=== PATIENT | male | born 1945 | race Caucasian/White ===

== ENCOUNTER 2019-05-04 21:37 | Emergency (ER) | payer OTHER ==
[2019-05-04 22:42] LABS: ABS Eosinophils 0.1 10^3/ul (0-0.6); ABS Lymphocytes 0.6 10^3/ul (1.0-4.8); ABS Monocytes 0.3 10^3/ul (0-0.8); ABS Neutrophils 5.4 10^3/ul (1.5-7.7); Eosinophil % 1.4 %; Hematocrit 38 % (42-52); Hemoglobin 13.1 g/dL (14.0-18.0); Lymphocyte % 9.6 %; Mean Corpuscular HGB Conc 35 g/dL (31-36); Mean Corpuscular Hemoglobin 28 pg (27-31); Mean Corpuscular Volume 82 fL (80-94); Mean Platelet Volume 7.1 fL (7.4-10.4); Platelet Count 142 10^3/uL (150-450); Red Blood Count 4.62 10^6 /uL (4.18-5.48); Red Cell Distribution Width 15 % (10-15); White Blood Count 6.4 10^3/uL (3.5-10.8)
[2019-05-04] MEDS ORDERED: NS 0.9% 1000 ML** 1,000 ML IV ONE (22:50)
[2019-05-04] MEDS ORDERED: Morphine 4 MG/ML VIAL (1 ml) 4 MG/ML VIAL IV ONE (22:50)
[2019-05-04] MEDS ORDERED: Ketorolac INJ* 30 MG/ML 1 ML VIAL IV PUSH ONE (22:50)
[2019-05-04] MEDS ORDERED: Ondansetron INJ* 2 MG/ML VIAL IV ONE (22:50)
--- NOTE | 2019-05-04 22:58 | ED ---
Abdominal Pain/Male - HPI Summary HPI Summary: Patient is a 74 y/o M presenting to the ED for a chief complaint of right flank pain that began around 18:00 on 05/04/19. Patient states that that right flank pain radiates to the groin and is rated as a 10/10 in severity. He notes nausea. Patient denies fever, vomiting, or back pain. No aggravating or alleviating factors are noted. He has a history of kidney stones. Patient has a colostomy bag in place on the RLQ for a PMHx of ulcerative colitis. PSHx is significant for kidney stone surgery performed by Dr. Cordon and stent placement. - History of Current Complaint Chief Complaint: EDFlankPain Stated Complaint: KIDNEY STONE PER PT Time Seen by Provider: 05/04/19 22:48 Hx Obtained From: Patient Onset/Duration: Sudden Onset, Still Present Timing: Constant Severity Initially: Severe Severity Currently: Severe Pain Intensity: 10 Pain Scale Used: 0-10 Numeric Location: Flank - Right Radiates: Yes Radiates to: Other - Groin Aggravating Factor(s): Nothing Alleviating Factor(s): Nothing Associated Signs And Symptoms: Positive: Nausea. Negative: Fever, Back Pain, Vomiting - Allergies/Home Medications Allergies/Adverse Reactions: Allergies Allergy/AdvReac Type Severity Reaction Status Date / Time niacin Allergy Anaphylatic Verified 05/04/19 21:40 Shock HAYFEVER/ENVIRONMENTAL Allergy NASAL Uncoded 07/19/14 13:17 CONGESTION HORNETS AND WASP Allergy Anaphylatic Uncoded 07/16/14 09:57 Shock PMH/Surg Hx/FS Hx/Imm Hx Previously Healthy: Yes Cardiovascular History: Reports: Hx Coronary Artery Disease - 3 STENTS PLACED-10 -11 YEARS AGO, Other Cardiovascular Problems/Disorders - 2004 3 CARDIAC STENTS GI History: Reports: Hx Gastroesophageal Reflux Disease - TUMS PRN, Other GI Disorders - ULCERATIVE COLITIS, HAS A ILEOSTOMY History: Reports: Hx Kidney Stones - LEFT STENT INSERTED 07/16/14 Musculoskeletal History: Reports: Hx Arthritis - HANDS, LEFT SHOULDER Sensory History: Reports: Hx Contacts or Glasses - GLASSES, Hx Hearing Aid - BILATERAL Denies: Hx Legally Blind, Hx Deafness Opthamlomology History: Reports: Hx Contacts or Glasses - GLASSES Denies: Hx Legally Blind EENT History: Denies: Hx Deafness Psychiatric History: Reports: Hx Anxiety - ON MEDS, Hx Depression - ON MEDICATION FOR - Surgical History Surgical History: Yes Surgery Procedure, Year, and Place: 2004 CARDIAC CATHX3. 1989 ILEOSTOMY [facility] [place]. L CYSTO STENT [facility] [place]. 2004 RIGHT TKR [email or web address] 2012 LEFT TKR [facility]. 07/16/14 CYSTO; L STENT [facility] [place] Hx Anesthesia Reactions: No Infectious Disease History: No Infectious Disease History: Denies: Traveled Outside the [place] in Last 30 Days - Family History Known Family History: Negative: Diabetes, Renal Disease - Social History Occupation: Retired Lives: With Family Alcohol Use: None Hx Substance Use: No Substance Use Type: Reports: None Hx Tobacco Use: No Smoking Status (MU): Never Smoked Tobacco Type: Cigarettes Review of Systems Negative: Fever Positive: Abdominal Pain - Right flank that radiates to the groin, Nausea. Negative: Vomiting Positive: flank pain - Right, pain - Groin that radiates from the right flank Negative: Myalgia - Back All Other Systems Reviewed And Are Negative: Yes Physical Exam - Summary Physical Exam Summary: Appearance: Well-appearing, Well-nourished, elderly man that appears uncomfortable and colicy. Skin: Warm, dry, no obvious rash Eyes: sclera anicteric, no conjunctival pallor ENT: mucous membranes moist, pharynx appears normal Neck: Supple, nontender Respiratory: Clear to auscultation, no signs of respiratory distress Cardiovascular: Normal S1, S2. No murmurs. Normal distal pulses in tibial and radial bilaterally. Abdomen: Soft, normal active bowel sounds present. Colostomy on the right lower quadrant, no abdominal tenderness, no hernias in the groin, normal femoral pulses. Musculoskeletal: Normal, Strength/ROM Intact Neurological: A&Ox3, awake and alert, mentation is normal, speech is fluent and appropriate Psychiatric: affect is normal, does not appear anxious or depressed Triage Information Reviewed: Yes Vital Signs On Initial Exam: Initial Vitals Temp Pulse Resp BP Pulse Ox 98.4 F 70 20 106/87 98 05/04/19 21:40 05/04/19 21:40 05/04/19 21:40 05/04/19 21:40 05/04/19 21:40 Vital Signs Reviewed: Yes Procedures - Sedation Patient Received Moderate/Deep Sedation with Procedure: No Diagnostics - Vital Signs Vital Signs Temp Pulse Resp BP Pulse Ox 05/04/19 21:40 98.4 F 70 20 106/87 98 - Laboratory Lab Results: Lab Results 05/04/19 Range/Units 22:36 WBC 6.4 (3.5-10.8) 10^3/uL RBC 4.62 (4.18-5.48) 10^6 /uL Hgb 13.1 L (14.0-18.0) g/dL Hct 38 L (42-52) % MCV 82 (80-94) fL MCH 28 (27-31) pg MCHC 35 (31-36) g/dL RDW 15 (10-15) % Plt Count 142 L (150-450) 10^3/uL MPV 7.1 L (7.4-10.4) fL Neut % (Auto) 83.0 % Lymph % (Auto) 9.6 % [place] % (Auto) 5.4 % Eos % (Auto) 1.4 % Baso % (Auto) 0.6 % Absolute Neuts (auto) 5.4 (1.5-7.7) 10^3/ul Absolute Lymphs (auto) 0.6 L (1.0-4.8) 10^3/ul Absolute Monos (auto) 0.3 (0-0.8) 10^3/ul Absolute Eos (auto) 0.1 (0-0.6) 10^3/ul Absolute Basos (auto) 0.0 (0-0.2) 10^3/ul Absolute Nucleated RBC 0.0 10^3/ul Nucleated RBC % 0.0 Result Diagrams: 05/04/19 22:36 05/04/19 22:36 Lab Statement: Any lab studies that have been ordered have been reviewed, and results considered in the medical decision making process. - Ultrasound Renal US Ultrasound Interpretation Completed By: Radiologist Summary of Ultrasound Findings: Renal US IMPRESSION: 1. Mild right hydronephrosis. 2. Decompressed urinary bladder. No ureteral jet is seen. Reviewed by Dr. Salgado. Abdominal Pain Male Course/Dx - Course Course Of Treatment: Patient is a 74 y/o M presenting to the ED for a chief complaint of right flank pain that began around 18:00 on 05/04/19. Patient states that that right flank pain radiates to the groin and is rated as a 10/10 in severity. He notes nausea. Patient denies fever, vomiting, or back pain. No aggravating or alleviating factors are noted. He has a history of kidney stones. Patient has a colostomy bag in place on the RLQ for a PMHx of ulcerative colitis. PSHx is significant for kidney stone surgery performed by Dr. Cordon and stent placement. On exam, elderly man that appears uncomfortable and colicy, colostomy on the right lower quadrant, no abdominal tenderness, no hernias in the groin, normal femoral pulses. In the ED course, patient was given Toradol 10 mg IV PUSH, morphine 4 mg IV, Zofran 8 mg IV, and IV fluids. Laboratory abnormal findings: Hgb 13.1, Hct 38, Plt count 142, MPV 7.1, absolute lymphs 0.6, creatinine 1.64, BUN/Creatinine ratio 7.3, glucose 161, alkaline phosphatase 107. Renal US IMPRESSION: 1. Mild right hydronephrosis. 2. Decompressed urinary bladder. No ureteral jet is seen. Patient will be discharged with a diagnosis of kidney stones. Follow up with the [facility] tomorrow. - Diagnoses Provider Diagnoses: Kidney stones Discharge ED - Sign-Out/Discharge Documenting (check all that apply): Patient Departure - Discharge - Discharge Plan Condition: Improved Disposition: HOME Patient Education Materials: Kidney Stones (ED) Referrals: Timmy Byrd MD [Primary Care Provider] - Additional Instructions: Check with your doctor at the [facility] tomorrow as planned. In the meantime you can take the pain pills we gave you if the pain comes back. - Billing Disposition and Condition Condition: IMPROVED Disposition: Home - Attestation Statements Document Initiated by Carmelita: Yes Documenting Carmelita: Erinn Patel Provider For Whom Carmelita is Documenting (Include Credential): Catarino Salgado MD Scribe Attestation: Erinn Conn, scribed for Catarino Salgado MD on 05/05/19 at 0220. Scribe Documentation Reviewed: Yes Provider Attestation: The documentation as recorded by the Erinn olivera accurately reflects the service I personally performed and the decisions made by me, Catarino Salgado MD Status of Scribnidhi Document: Viewed
[2019-05-04 22:59] LABS: Albumin 4.1 g/dL (3.2-5.2); Albumin/Globulin Ratio 1.4 (1-3); BUN/Creatinine Ratio 7.3 (8-20); Calcium 8.8 mg/dL (8.6-10.3); EGFR African American 50.2 (>60); EGFR Non-African American 41.5 (>60); Globulin 2.9 g/dL (2-4); Potassium 3.7 mmol/L (3.5-5.0); Total Bilirubin 0.6 mg/dL (0.2-1.0)
[2019-05-05 01:10] VITALS: BP 125/55
== END 2019-05-05 01:36 | disposition home or self-care (01) ==
LOC: ED 21:37
DX: N13.2 Hydronephrosis with renal and ureteral calculous obstruction (principal); I25.10 Atherosclerotic heart disease of native coronary artery without angina pectoris; K21.9 Gastro-esophageal reflux disease without esophagitis; F41.9 Anxiety disorder, unspecified; F32.9 Major depressive disorder, single episode, unspecified; Z95.5 Presence of coronary angioplasty implant and graft; Z79.899 Other long term (current) drug therapy
CPT/HCPCS: 36415; 76775; 80053; 85025; 96361; 96374; 96375; 99282; J1885; J2270; J2405